=== PATIENT | male | born 1975 | race Caucasian/White ===

== ENCOUNTER 2017-07-29 21:05 | Emergency (ER) | payer BC ==
--- NOTE | 2017-07-29 21:33 | EDM.PDOC ---
ED HPI GENERAL MEDICAL PROBLEM - General Chief Complaint: Lower Extremity Injury/Pain Stated Complaint: KNEE PAIN Time Seen by Provider: 07/29/17 21:28 Source of Information: Reports: Patient, Family (spouse) History Limitations: Reports: No Limitations - History of Present Illness INITIAL COMMENTS - FREE TEXT/NARRATIVE: 42-year-old male presents the ED with severe right knee pain. States he did have mild to minor trauma to the knee this morning when he was feeding cows. He bumped the distal quadriceps area above his knee on a part of the tractor. He didn't think much of it. Over the afternoon the knee but started to become more painful and achy in the seat evening and [employer] it became quite severe to the point that he could barely weight-bear and certainly could not bend or Geniuflex. No previous problems with his knee. Pain is felt more laterally than medially. Onset: Today Onset Date: 07/29/17 Onset Time: 19:00 Duration: Hour(s): Location: Reports: Lower Extremity, Right (Right knee.) Quality: Reports: Ache, Sharp, Stabbing, Throbbing Severity: Severe (8 out of 10.) Improves with: Reports: Rest Worsens with: Reports: Movement Context: Denies: Activity, Exercise (Attending makes it much worse), Lifting, Sick Contact, Trauma, Other Associated Symptoms: Reports: No Other Symptoms Treatments SORORITY SUPERVISOR: Reports: Other (see below) Other Treatments SORORITY SUPERVISOR: none Right Knee Pain Score (Numeric/FACES): 6 - Related Data Allergies Allergy/AdvReac Type Severity Reaction Status Date / Time No Known Allergies Allergy Verified 07/29/17 21:18 Home Meds: Home Meds atorvaSTATin [Lipitor] 20 mg PO DAILY 07/29/17 [History] Past Medical History Cardiovascular History: Reports: High Cholesterol Social & Family History - Tobacco Use Smoking Status *Q: Never Smoker - Caffeine Use Caffeine Use: Reports: Coffee, Soda - Recreational Drug Use Recreational Drug Use: No - Living Situation & Occupation Living situation: Reports: Occupation: Employed (Self-employed rancher.) Review of Systems - Review of Systems Review Of Systems: See Below Constitutional: Reports: No Symptoms Eyes: Reports: No Symptoms Ears: Reports: No Symptoms Nose: Reports: No Symptoms Mouth/Throat: Reports: No Symptoms Respiratory: Reports: No Symptoms Cardiovascular: Reports: No Symptoms GI/Abdominal: Reports: No Symptoms Genitourinary: Reports: No Symptoms Musculoskeletal: Reports: Joint Pain Skin: Reports: No Symptoms (Severe knee pain she history of present illness) Neurological: Reports: No Symptoms Psychiatric: Reports: No Symptoms ED EXAM, GENERAL - Physical Exam Exam: See Below Exam Limited By: No Limitations General Appearance: Alert, WD/WN, No Apparent Distress Eye Exam: Bilateral Eye: Normal Inspection Head: Atraumatic, Normocephalic Neck: Normal Inspection, Supple, Non-Tender, Full Range of Motion. No: Lymphadenopathy (L), Lymphadenopathy (R) Respiratory/Chest: No Respiratory Distress, Lungs Clear, Normal Breath Sounds, Respiratory Distress Cardiovascular: Normal Peripheral Pulses, Regular Rate, Rhythm, No Edema, No Murmur (Mild tachypnea at rest 20/m. He is mildly anxious.) Peripheral Pulses: 3+: Posterior Tibial (L), Posterior Tibial (R), Dorsalis Pedis (L), Dorsalis Pedis (R) GI/Abdominal: Normal Bowel Sounds, Soft, Non-Tender, No Organomegaly Back Exam: Normal Inspection, Full Range of Motion. No: CVA Tenderness (L), CVA Tenderness (R) Extremities: Normal Inspection, Non-Tender, No Pedal Edema, Limited Range of Motion (Right knee is very painful to flex.), Increased Warmth (There is increased warmth particularly noted over the lateral joint space mildly on the medial joint space.), Other (Marked tenderness along the joint space both medially and laterally worse on the lateral compartment as compared to the medial compartment.) Neurological: Alert, Oriented, CN II-XII Intact, Normal Cognition. No: Normal Gait Psychiatric: Normal Affect ( No true effusion appreciated.), Normal Mood Skin Exam: Warm, Dry, Intact, Normal Color, No Rash Course - Vital Signs Last Recorded V/S: Last Vital Signs Temp 35.9 C 07/29/17 21:15 Pulse 91 07/29/17 21:15 Resp 20 07/29/17 21:15 BP 132/91 H 07/29/17 21:15 Pulse Ox 99 07/29/17 21:15 - Orders/Labs/Meds Orders: Active Orders 24 hr Category Date Time Status Knee 3V Rt [CR] Stat Exams 07/29/17 21:29 Ordered Meds: Medications Discontinued Medications Generic Name Dose Route Start Last Admin Trade Name Freq PRN Reason Stop Dose Admin Colchicine 0.6 mg 07/29/17 21:52 07/29/17 22:17 Colcrys PO 07/29/17 21:53 1.8 mg ONETIME ONE Administration Indomethacin 50 mg 07/29/17 21:53 07/29/17 22:18 Indocin PO 07/29/17 21:54 50 mg ONETIME ONE Administration Prednisone 30 mg 07/29/17 21:53 07/29/17 22:18 Prednisone PO 07/29/17 21:54 30 mg ONETIME ONE Administration - Radiology Interpretation Free Text/Narrative:: 42-year-old male presents to the ED with acute onset of severe right knee pain without any significant trauma. Pain started this afternoon is gradually progressed to the point that his severe tonight. Was unable to hardly walk out of [employer] tonight. He was certainly unable to Genu flex. Examination reveals increased warmth coming out of the lateral and medial joint spaces tenderness along the distribution of the lateral and medial collateral ligaments. There is no true true joint effusion.. Patellofemoral movement is normal. By initial impression is acute gouty arthritis although he's never experienced an attack of gout in the past. Does not drink any alcohol for several weeks. He tried eats meat daily. Plan 3 view x-ray of the knee to be obtained. - Re-Assessments/Exams Free Text/Narrative Re-Assessment/Exam: 07/29/17 21:51 three-view x-ray is been completed on his right knee and is within normal limits. Therefore working diagnosis is either pseudogout or gout to cause acute onset of severe pain with no trauma. Be started on colchicine 0.6 mg every hour for 3 consecutive hours. Prednisone 30 mg by mouth with indomethacin 50 mg by mouth in the ED. We'll also be given Percocet 5/3/25 milligram tablets one or 2 every 4-6 hours for pain relief 16 tablets. Departure - Departure Time of Disposition: 22:08 Disposition: Home, Self-Care 01 Condition: Fair Clinical Impression: Gout attack Qualifiers: Gout site: knee Encounter type: initial encounter Laterality: right - Discharge Information Referrals: Carlitos Medina Jr, MD [Primary Care Provider] - Forms: ED Department Discharge Additional Instructions: Evaluation the emergent tonight in regards to acute onset of severe pain right knee for no good reason. Pain started this afternoon is gradually worsened to the point that you're unable to flex the knee or barely walk. Examination reveals increased warmth compatible with joint inflammation particularly outside aspect of the knee joint. An x-ray of the knee is completely normal. Therefore the diagnosis is acute gout versus pseudogout arthritis of the knee. Crystals are deposited within the joint and set up a significant inflammation causing pain. Treatment is colchicine 0.6 mg tablet one every hour for 3 consecutive hours I 10:00 11:00 and 12:00 tonight. Prednisone 30 mg by mouth was administered in the ED. Also indomethacin 50 mg IV for acute anti- inflammatory effect. Treatment at home tomorrow is prednisone 20 mg with breakfast and supper for 5 days. Motrin 600 mg every 6 hours for the next 7 days to relieve pain and inflammation. A medication is Percocet 5/3/25 milligrams tabs one or 2 every 4-6 hours for pain relief as needed. Usually you should be 80% better by tomorrow noon at this time and nearly pretty well back to normal within 3-4 days time. The next time you are in the clinic you should have your uric acid level checked by your doctor. - My Orders Last 24 Hours: My Active Orders 07/29/17 21:29 Knee 3V Rt [CR] Stat - Assessment/Plan Last 24 Hours: My Active Orders 07/29/17 21:29 Knee 3V Rt [CR] Stat
[2017-07-29] MEDS ORDERED: Indomethacin 25 MG Cap PO ONE (21:53)
[2017-07-29] MEDS ORDERED: predniSONE 20 MG Tab PO ONE (21:53)
[2017-07-29] MEDS: Colchicine 0.6 MG Tab PO ONE (22:17)
--- NOTE | 2017-07-30 16:55 | CR ---
Right knee: AP, lateral and sunrise patellar views of the right knee were obtained. Comparison: No prior study. Medial and lateral joint spaces are preserved. Patellofemoral joint appears maintained. No acute fracture or other bony abnormality is identified. Impression: 1. No abnormality is identified on three-view right knee exam. Diagnostic code #1
== END 2017-07-29 22:31 | disposition home or self-care (01) ==
LOC: JD.ED 21:05
DX: M10.9 Gout, unspecified (principal); E78.00 Pure hypercholesterolemia, unspecified; Z79.899 Other long term (current) drug therapy
CPT/HCPCS: 73562; 99283; A9270

== ENCOUNTER 2017-11-29 14:45 | Emergency (ER) | payer BC ==
--- NOTE | 2017-11-29 15:36 | CT ---
CT cervical spine Technique: Multiple axial sections were obtained from above C1 inferiorly to the bottom of T1. Reconstructed sagittal and coronal images were reviewed. Comparison: No prior cervical spine imaging. Findings: Vertebral body heights and disc spaces are maintained. Minimal degenerative apophyseal change is seen C7-T1 and T1-T2. Vertebral bodies and posterior arches are intact with no fracture being seen. No bony central or bony neural foraminal stenosis is seen. Impression: 1. Minimal degenerative change. 2. Nothing acute is appreciated on CT study of the cervical spine. Diagnostic code #1
--- NOTE | 2017-11-29 15:46 | EDM.PDOC ---
ED HPI GENERAL MEDICAL PROBLEM - General Chief Complaint: Trauma Stated Complaint: BUCKED OFF A HORSE Time Seen by Provider: 11/29/17 14:53 Source of Information: Reports: Patient, Family (Parents) History Limitations: Reports: No Limitations - History of Present Illness INITIAL COMMENTS - FREE TEXT/NARRATIVE: The patient states that he fell off a horse and landed on his upper back just after 13:00 this afternoon. He states that he did not hit his head, there is no loss of consciousness, but he did have the wind knocked out of him. He presents with pain to his upper back, his right scapular area and his right anterior chest. His right scapular and right chest pain are made worse if he moves his right upper extremity, although the right upper extremity itself does not hurt. Pain is also made worse with breathing. The patient's last oral solid food was around noon. The patient's PCP is Dr. Medina. Back Pain Score (Numeric/FACES): 7 - Related Data Allergies Allergy/AdvReac Type Severity Reaction Status Date / Time No Known Allergies Allergy Verified 11/29/17 14:58 Home Meds: Home Meds atorvaSTATin [Lipitor] 20 mg PO DAILY 07/29/17 [History] Past Medical History Cardiovascular History: Reports: High Cholesterol - Past Surgical History HEENT Surgical History: Reports: Oral Surgery ([place] teeth extraction) GI Surgical History: Reports: Colonoscopy Oncologic Surgical History: Reports: Other (See Below) (Neck lymph node biopsy - benign) Social & Family History - Tobacco Use Smoking Status *Q: Never Smoker Second Hand Smoke Exposure: No - Caffeine Use Caffeine Use: Reports: Coffee - Alcohol Use Alcohol Use History: Yes Alcohol Use Frequency: Socially - Recreational Drug Use Recreational Drug Use: No - Living Situation & Occupation Living situation: Reports: , with Spouse, with Family (3 kids) Occupation: Employed (Self-employed rancher) Review of Systems - Review of Systems Review Of Systems: ROS reveals no pertinent complaints other than HPI. ED EXAM, GENERAL - Physical Exam Exam: See Below Exam Limited By: No Limitations General Appearance: Alert, WD/WN, No Apparent Distress Eye Exam: Bilateral Eye: Normal Inspection Ears: Normal External Exam, Hearing Grossly Normal Nose: Normal Inspection, No Blood Throat/Mouth: Normal Inspection, Normal Lips, Normal Voice, No Airway Compromise Head: Atraumatic, Normocephalic Neck: Other (Cervical collar left in place) Respiratory/Chest: No Respiratory Distress, Lungs Clear, Normal Breath Sounds, No Accessory Muscle Use, Chest Non-Tender, Other (No crepitus to palpation of the right anterior and posterior chest) Cardiovascular: Normal Peripheral Pulses, Regular Rate, Rhythm, No Edema, No Gallop, No JVD, No Murmur, No Rub Peripheral Pulses: 4+: Radial (L), Radial (R) GI/Abdominal: Normal Bowel Sounds, Soft, Non-Tender, No Organomegaly, No Distention, No Abnormal Bruit, No Mass (Male) Exam: Deferred Rectal (Males) Exam: Prostate Normal, Deferred Back Exam: Vertebral Tenderness (No visible abnormality to the patient's back, such as swelling, erythema, ecchymosis, or abrasion, however, there is tenderness to palpation of the thoracic spinous processes. Minimal, if any, tenderness to the paraspinous musculature.) Extremities: Normal Inspection, Normal Range of Motion, No Pedal Edema, Normal Capillary Refill Neurological: Alert, Oriented, Normal Cognition, No Motor/Sensory Deficits Psychiatric: Normal Affect Skin Exam: Warm, Dry, Intact, Normal Color, No Rash Course - Vital Signs Last Recorded V/S: Last Vital Signs Temp 36.9 C 11/29/17 14:53 Pulse 95 11/29/17 14:53 Resp 16 11/29/17 14:53 BP 128/85 11/29/17 14:53 Pulse Ox - Orders/Labs/Meds Orders: Active Orders 24 hr Category Date Time Status Sodium Chloride 0.9% [Normal Saline] 1,000 ml Med 11/29/17 15:45 Active IV ASDIRECTED Medication Orders Sodium Chloride (Normal Saline) 1,000 mls @ 150 mls/hr IV ASDIRECTED PRINCESS Last Admin: 11/29/17 15:48 Dose: 150 mls/hr Meds: Medications Generic Name Dose Route Start Last Admin Trade Name Freq PRN Reason Stop Dose Admin Sodium Chloride 1,000 mls @ 150 mls/hr 11/29/17 15:45 11/29/17 15:48 Normal Saline IV 150 mls/hr ASDIRECTED PRINCESS Administration Discontinued Medications Generic Name Dose Route Start Last Admin Trade Name Freq PRN Reason Stop Dose Admin Hydromorphone HCl 1 mg 11/29/17 15:40 11/29/17 15:49 Dilaudid IVPUSH 11/29/17 15:41 1 mg ONETIME STA Administration Iopamidol 100 ml 11/29/17 15:41 11/29/17 16:00 Isovue-300 (61%) IVPUSH 11/29/17 15:42 80 ml ONETIME ONE Administration Ondansetron HCl 4 mg 11/29/17 15:40 11/29/17 15:48 Zofran IVPUSH 11/29/17 15:41 4 mg ONETIME ONE Administration Sodium Chloride 10 ml 11/29/17 15:41 11/29/17 15:50 Saline Flush FLUSH 11/29/17 15:42 10 ml ONETIME ONE Administration - Re-Assessments/Exams Free Text/Narrative Re-Assessment/Exam: 11/29/17 15:41 CT of the cervical spine without contrast is read by Dr. Vyas as: 1. Minimal degenerative change. 2. Nothing acute is appreciated on CT study of the cervical spine. The patient has tenderness to his upper thoracic spinous processes. He has pain to his right scapula and right anterior chest, but no tenderness. These findings are concerning for a thoracic spinous injury. I have ordered a CT of the chest with IV contrast to further evaluate. 11/29/17 15:45 The cervical collar was removed and the patient's neck clinically checked. 11/29/17 16:41 CT of the chest with IV contrast is read by Dr. Vyas as: 1. Cystic lesion within the spleen believed to be benign and incidental. 2. Nothing acute is seen on CT study of the chest. 11/29/17 16:46 CT results discussed with the patient and his parents. Today's workup is negative. No significant injuries were found. I'm recommending that he take over -the-counter ibuprofen, get plenty of rest tonight, then resume his usual activities tomorrow. Departure - Departure Time of Disposition: 16:47 Disposition: Home, Self-Care 01 Condition: Good Clinical Impression: Fall from horse - Discharge Information Referrals: Carlitos Medina Jr, MD [Primary Care Provider] - Forms: ED Department Discharge Additional Instructions: You were seen in the emergency room after falling off a horse, landing on your upper back. Workup in the ER included a CT scan of your cervical spine and chest. Your entire workup was unremarkable. No broken bones or other injuries were found. You will likely be more sore tonight. We recommend that you take over-the- counter ibuprofen, stay well hydrated, get plenty of rest tonight, then resume your usual activities tomorrow. Follow-up with your PCP, Dr. Carlitos Medina, as needed. If any other problems, please do not hesitate to return to the ER. - My Orders Last 24 Hours: My Active Orders 11/29/17 15:45 Sodium Chloride 0.9% [Normal Saline] 1,000 ml IV ASDIRECTED - Assessment/Plan Last 24 Hours: My Active Orders 11/29/17 15:45 Sodium Chloride 0.9% [Normal Saline] 1,000 ml IV ASDIRECTED
[2017-11-29] MEDS: Ondansetron 4 MG/2 ML SDV IVPUSH ONE (15:48)
[2017-11-29] MEDS: Sodium Chloride 0.9% 1,000 ML IV SCH (15:48)
[2017-11-29] MEDS: HYDROmorphone 0.5 MG/0.5 ML SYRINGE IVPUSH STA (15:49)
[2017-11-29] MEDS: Sodium Chloride 0.9% 10 ML Syringe FLUSH ONE (15:50)
[2017-11-29] MEDS: Iopamidol 612 MG/ML 100 ML Bottle IVPUSH ONE (16:00)
--- NOTE | 2017-11-29 16:22 | CT ---
CT chest Technique: Multiple axial sections were obtained from above the lung apices inferiorly through the lung bases. Intravenous contrast was utilized. Comparison: No previous chest imaging. Findings: Mediastinum and hilar regions appear within normal limits. No adenopathy or mass is seen. No pericardial fluid is seen. Cystic lesion is seen within the spleen measuring 2.7 cm which is felt to be incidental. Other visualized upper abdominal structures are within normal limits. Lungs are clear with no pulmonary contusion or pleural effusions. No pneumothorax is seen. No discrete rib fracture is appreciated. Thoracic spine shows no compression deformities. Sternum appears intact on the reconstructed sagittal images. Impression: 1. Cystic lesion within the spleen believed to be benign and incidental. 2. Nothing acute is seen on CT study of the chest. Diagnostic code #2
== END 2017-11-29 17:04 | disposition home or self-care (01) ==
LOC: JD.ED 14:45
DX: M54.6 Pain in thoracic spine (principal); M25.511 Pain in right shoulder; E78.00 Pure hypercholesterolemia, unspecified; V80.010A Animal-rider injured by fall from or being thrown from horse in noncollision accident, initial encounter; Z79.899 Other long term (current) drug therapy
CPT/HCPCS: 71260; 72125; 96361; 96374; 96375; 99284; J1170; J2405; J7040; J7050; Q9967